=== PATIENT | female | born 2000 | race Caucasian/White ===

== ENCOUNTER 2018-01-10 22:26 | Emergency (ER) | payer OTHER ==
[~2018-01-10] VITALS: Ht 157.5 cm; Wt 95.3 kg
[2018-01-10 22:37] VITALS: BP_SYST 131
[2018-01-10] MEDS ORDERED: DIPH-TET-PERTUS Vaccine 0.5 ML VIAL (ADACEL) IM ONE (23:00)
[2018-01-10 23:44] VITALS: BP_SYST 127
== END 2018-01-10 23:31 | disposition home or self-care (01) ==
LOC: SED 22:26
DX: S61.551A Open bite of right wrist, initial encounter (principal); R03.0 Elevated blood-pressure reading, without diagnosis of hypertension; W54.0XXA Bitten by dog, initial encounter; Y93.89 Activity, other specified; Y92.89 Other specified places as the place of occurrence of the external cause; Y99.8 Other external cause status
CPT/HCPCS: 90715; 99284